=== PATIENT | female | born 1960 | race Caucasian/White ===

== ENCOUNTER → 2021-10-23 | Outpatient (CLI) | payer MEDICARE, OTHER ==
[~2021-10-23] MED LIST: ARTHRITIS PAIN650 M1 PO; CELEXA40 MG PO; CITALOPRAM HBR40 MG PO; CYCLOBENZAPRINE10 MG PO; FAMOTIDINE40 MG PO; HYDROCODON-ACE1 EAC4 PO; LORATADINE10 MG PO; PRAMIPEXOLE DI1.5 MG PO; PROTONIX 40 MG40 M1 PO; PROVENTIL HFA6.7 GM INH; STOOL SOFTENER100 MG PO; TOPIRAMATE25 MG PO; VITAMIN B12 PO
[2021-10-23 12:25] LABS: HEMOGLOBIN 13.8 gm/dl (12.3-15.3); RED BLOOD COUNT 4.46 M/UL (4.00-5.10); WHITE BLOOD COUNT 6.5 K/UL (4.5-11.0)
[2021-10-23 12:52] LABS: BUN/CREATININE RATIO 27 (0-10)
== END ==
LOC: OPSV2 10:00
PROVIDERS: Orthopaedic Surgery
DX: Z01.818 Encounter for other preprocedural examination (principal); S62.303A Unspecified fracture of third metacarpal bone, left hand, initial encounter for closed fracture; S62.305A Unspecified fracture of fourth metacarpal bone, left hand, initial encounter for closed fracture; R94.31 Abnormal electrocardiogram [ECG] [EKG]
CPT/HCPCS: 36415; 80048; 85027; 93005

== ENCOUNTER → 2021-10-24 | Day surgery (SDC) | payer MEDICARE, OTHER ==
[~2021-10-24] VITALS: Ht 160 cm; Wt 68.0 kg
== END | disposition home or self-care (01) ==
LOC: OR 05:42
DX: S62.303A Unspecified fracture of third metacarpal bone, left hand, initial encounter for closed fracture (principal); S62.305A Unspecified fracture of fourth metacarpal bone, left hand, initial encounter for closed fracture; G80.9 Cerebral palsy, unspecified; W19.XXXA Unspecified fall, initial encounter; Y92.002 Bathroom of unspecified non-institutional (private) residence as the place of occurrence of the external cause; Z88.8 Allergy status to other drugs, medicaments and biological substances
CPT/HCPCS: 73130; 76000; C1713; J0171; J0690; J1100; J1170; J2001; J2250; J2370; J2405; J2704; J2795; J3010; J3370; J7120